=== PATIENT | female | born 1955 | race Caucasian/White ===

== ENCOUNTER → 2016-07-16 | Outpatient (CLI) | payer OTHER ==
[~2016-07-16] MED LIST: CALCIUM AND VIT D OR; CLAR5CHW OR; FLUO20SO2 OR; IBUP800T OR; MULTIVIT OR; NASONEX; TRAZ50TA OR
--- NOTE | 2016-07-16 10:43 | REP ---
Chest x-ray: Two views. History: Cough. Comparison study September 28, 2014. Findings: There is an infiltrate in the left base consistent with pneumonia. It is not well seen on lateral radiograph. The pleural angles are sharp. Heart size is normal. Pulmonary vasculature is not increased. Impression: Infiltrate in the left base consistent with pneumonia. Signed by Mickey Cabrera MD 07/16/2016 12:39 P
== END ==
LOC: M LRY 10:08
PROVIDERS: ATTEND Physician Assistant
DX: R91.8 Other nonspecific abnormal finding of lung field (principal)

== ENCOUNTER → 2017-03-20 | Outpatient (CLI) | payer OTHER ==
--- NOTE | 2017-03-20 17:20 | REP ---
CT MAXILLOFACIAL WITHOUT CONTRAST: 03/20/2017. CLINICAL HISTORY: Chronic rhinitis and sinusitis. COMPARISON: 03/22/2016, 01/28/2015. FINDINGS: Axial, soft tissue and bone windows with coronal reconstructions and bone window settings are reviewed. Nasal septum is deviated towards the right side anteriorly, unchanged. Nasal bones and the nasal spine and maxilla unremarkable. Ethmoid air cells are clear. The frontal sinuses are clear and the maxillary sinuses are clear. Sphenoid air cells are clear. The ostiomeatal complexes show no infundibular stenosis and the hiatus semilunaris is intact. No ramone bullosa of the middle turbinates. Bony orbits and sinus wong are intact. The visualized mandible and maxillary alveolar ridge were without acute finding. The skull base and visualized portions of calvarium unremarkable. Mastoids symmetric. IMPRESSION: 1. Negative CT sinuses with the previous minor mucosal thickening in the left maxillary antrum are resolved. No air-fluid levels, destructive lesions, fractures or opacification of the bilateral OMCs. Signed by Jv Bowen MD 03/20/2017 05:22 P
== END ==
LOC: M RAD 15:59
PROVIDERS: ATTEND Specialist
DX: J31.0 Chronic rhinitis (principal); J34.2 Deviated nasal septum; G50.1 Atypical facial pain

== ENCOUNTER 2018-06-10 07:37 | Emergency (ER) | payer OTHER, MEDICAID ==
[2018-06-10 08:46] LABS: VENOUS BASE EXCESS -0.8 (-2.0-2.0); VENOUS HCO3 23.6 MEQ/L (23.0-27.0); VENOUS O2 SATURATION 98.3 % (60.0-80.0); VENOUS PARTIAL PRESSURE CO2 38.4 mmHg (38.0-50.0); VENOUS PARTIAL PRESSURE O2 115.7 mmHg (30.0-50.0); VENOUS PH 7.407 UNITS (7.330-7.430); VENOUS STANDARD HCO3 23.8 MEQ/L; VENOUS TOTAL CO2 24.8 MEQ/L (24.0-28.0)
[2018-06-10 08:53] LABS: BASO % 0.6 % (0.0-1.0); EOS # 0.1 10^3/uL (0.0-0.50); EOS % 2.3 % (0.0-3.0); HEMATOCRIT 37.9 % (36.0-47.0); IMMATURE GRANULOCYTE % 0.2 % (0-3.0); LYMPH # 3.2 10^3/uL (1.5-4.5); LYMPH % 51.5 % (24.0-44.0); MEAN CORPUSCULAR HEMOGLOBIN 30.4 pg (27.0-33.0); MEAN CORPUSCULAR HGB CONC 34.3 g/dl (32.0-36.5); MEAN CORPUSCULAR VOLUME 88.8 fl (80.0-96.0); MONO # 0.5 10^3/uL (0.0-0.8); MONO % 7.7 % (0.0-5.0); NEUTROPHILS # 2.3 10^3/uL (1.8-7.7); NEUTROPHILS % 37.7 % (36.0-66.0); PLATELET COUNT, AUTOMATED 280 10^3/uL (150-450); RED BLOOD COUNT 4.27 10^6/uL (4.00-5.40); RED CELL DISTRIBUTION WIDTH 11.5 % (11.5-14.5); WHITE BLOOD COUNT 6.2 10^3/uL (4.0-10.0)
[2018-06-10 09:12] LABS: ALBUMIN 3.7 GM/DL (3.2-5.2); ALBUMIN/GLOBULIN RATIO 1.12 (1.00-1.93); ALKALINE PHOSPHATASE 81 U/L (45-117); ALT/SGPT 49 U/L (12-78); ANION GAP 7 MEQ/L (8-16); AST/SGOT 20 U/L (7-37); BILIRUBIN,DIRECT < 0.1 MG/DL (0.0-0.2); BILIRUBIN,TOTAL 0.4 MG/DL (0.2-1.0); BLOOD UREA NITROGEN 10 MG/DL (7-18); CALCIUM LEVEL 8.5 MG/DL (8.8-10.2); CARBON DIOXIDE LEVEL 26 MEQ/L (21-32); CHLORIDE LEVEL 107 MEQ/L (98-107); CK-MB VALUE MASS < 1.0 NG/ML (<3.6); CPK CREATINE PHOSPHOKINASE 35 U/L (26-192); CREATININE FOR GFR 0.64 MG/DL (0.55-1.30); GLOMERULAR FILTRATION RATE > 60.0 (>45); GLUCOSE, FASTING 95 MG/DL (70-100); MB/CK RELATIVE INDEX 2.86 (< OR =4); POTASSIUM SERUM 3.9 MEQ/L (3.5-5.1); SODIUM LEVEL 140 MEQ/L (136-145); TROPONIN I < 0.02 NG/ML (< 0.10)
== END 2018-06-10 10:40 | disposition left against medical advice (07) ==
LOC: M ED 07:37
DX: R07.9 Chest pain, unspecified (principal); R05 Cough; H40.9 Unspecified glaucoma; J34.89 Other specified disorders of nose and nasal sinuses; Z79.899 Other long term (current) drug therapy; F17.210 Nicotine dependence, cigarettes, uncomplicated
CPT/HCPCS: 71046

== ENCOUNTER 2018-06-14 09:32 | Emergency (ER) | payer OTHER ==
[2018-06-14 10:35] LABS: BASO % 0.6 % (0.0-1.0); EOS # 0.1 10^3/uL (0.0-0.50); EOS % 1.9 % (0.0-3.0); HEMATOCRIT 38.2 % (36.0-47.0); HEMOGLOBIN 13.1 g/dl (12.0-15.5); IMMATURE GRANULOCYTE % 0.2 % (0-3.0); LYMPH # 2.5 10^3/uL (1.5-4.5); LYMPH % 39.6 % (24.0-44.0); MEAN CORPUSCULAR HEMOGLOBIN 30.4 pg (27.0-33.0); MEAN CORPUSCULAR HGB CONC 34.3 g/dl (32.0-36.5); MEAN CORPUSCULAR VOLUME 88.6 fl (80.0-96.0); MONO # 0.6 10^3/uL (0.0-0.8); MONO % 9.4 % (0.0-5.0); NEUTROPHILS # 3.1 10^3/uL (1.8-7.7); NEUTROPHILS % 48.3 % (36.0-66.0); PLATELET COUNT, AUTOMATED 260 10^3/uL (150-450); RED BLOOD COUNT 4.31 10^6/uL (4.00-5.40); RED CELL DISTRIBUTION WIDTH 11.4 % (11.5-14.5); WHITE BLOOD COUNT 6.4 10^3/uL (4.0-10.0)
[2018-06-14 11:00] LABS: D-DIMER QUANT < 270 ng/ml (<500)
[2018-06-14 11:05] LABS: ALBUMIN 3.4 GM/DL (3.2-5.2); ALKALINE PHOSPHATASE 77 U/L (45-117); ALT/SGPT 70 U/L (12-78); ANION GAP 10 MEQ/L (8-16); AST/SGOT 35 U/L (7-37); BILIRUBIN,DIRECT < 0.1 MG/DL (0.0-0.2); BILIRUBIN,TOTAL 0.4 MG/DL (0.2-1.0); BLOOD UREA NITROGEN 14 MG/DL (7-18); CALCIUM LEVEL 7.7 MG/DL (8.8-10.2); CARBON DIOXIDE LEVEL 24 MEQ/L (21-32); CHLORIDE LEVEL 109 MEQ/L (98-107); CK-MB VALUE MASS < 1.0 NG/ML (<3.6); CPK CREATINE PHOSPHOKINASE 32 U/L (26-192); CREATININE FOR GFR 0.64 MG/DL (0.55-1.30); GLOMERULAR FILTRATION RATE > 60.0 (>45); GLUCOSE, FASTING 88 MG/DL (70-100); LIPASE 176 U/L (73-393); MB/CK RELATIVE INDEX 3.12 (< OR =4); NT-PRO BNP 29 PG/ML (<125); POTASSIUM SERUM 3.9 MEQ/L (3.5-5.1); SODIUM LEVEL 143 MEQ/L (136-145); TOTAL PROTEIN 6.5 GM/DL (6.4-8.2); TROPONIN I < 0.02 NG/ML (< 0.10)
[2018-06-14 15:00] LABS: CK-MB VALUE MASS < 1.0 NG/ML (<3.6); CPK CREATINE PHOSPHOKINASE 38 U/L (26-192); MB/CK RELATIVE INDEX 2.63 (< OR =4); TROPONIN I < 0.02 NG/ML (< 0.10)
== END 2018-06-14 16:07 | disposition home or self-care (01) ==
LOC: M ED 09:32
DX: R07.89 Other chest pain (principal)
CPT/HCPCS: 71046

== ENCOUNTER 2018-06-19 08:14 | Emergency (ER) | payer OTHER ==
[2018-06-19] MEDS ORDERED: ISOVUE-370 76% 100ML VIAL (Q9967) As Ordered (09:32)
== END 2018-06-19 11:29 | disposition home or self-care (01) ==
LOC: M ED 08:14
DX: J40 Bronchitis, not specified as acute or chronic (principal); J30.9 Allergic rhinitis, unspecified; Z79.899 Other long term (current) drug therapy; F17.210 Nicotine dependence, cigarettes, uncomplicated
CPT/HCPCS: Q9967

== ENCOUNTER → 2018-07-04 | Outpatient (REF) | payer OTHER, MEDICAID ==
[~2018-07-04] MED LIST changes: +BRIM2OPD; +CLAR500T; +MONT10TA2; +VENTAER; +XALA0.007
== END ==
LOC: M SFHCPLAZ 16:00
PROVIDERS: ATTEND Physician Assistant Medical
DX: J30.9 Allergic rhinitis, unspecified (principal)

== ENCOUNTER → 2018-11-04 | Outpatient (CLI) | payer OTHER | LOC: M LRY 10:13 | PROVIDERS: ATTEND Nurse Practitioner Family | DX: Z53.9 Procedure and treatment not carried out, unspecified reason (principal); R09.89 Other specified symptoms and signs involving the circulatory and respiratory systems ==

== ENCOUNTER → 2018-11-04 | Outpatient (CLI) | payer OTHER ==
--- NOTE | 2018-11-04 16:14 | REP ---
Chest two views HISTORY: Congestion Comparison: 06/14/2018 The lungs are clear. The heart is normal in size. The pulmonary vasculature is normal in appearance. The bony structure is intact. IMPRESSION: No acute disease. Electronically Signed by Bubba Andrade MD 11/04/2018 12:08 P
== END ==
LOC: M RAD 11:35
PROVIDERS: ATTEND Nurse Practitioner Family
DX: Z87.09 Personal history of other diseases of the respiratory system (principal)

== ENCOUNTER → 2018-11-04 | Outpatient (CLI) | payer OTHER | LOC: M LRY 10:18 | PROVIDERS: ATTEND Nurse Practitioner Family | DX: Z53.9 Procedure and treatment not carried out, unspecified reason (principal); R09.89 Other specified symptoms and signs involving the circulatory and respiratory systems ==

== ENCOUNTER → 2020-05-20 | Outpatient (CLI) | payer OTHER ==
[~2020-05-20] MED LIST changes: -CLAR500T; +CLAR500T97; -MONT10TA2; +MONT10TA4
--- NOTE | 2020-05-20 08:30 | REP ---
INDICATION: TOBACCO ABUSE MRI 1ST CT 2ND. COMPARISON: Chest x-ray 11/04/2018, CT 06/19/2018 TECHNIQUE: Low-dose screening lung CT protocol FINDINGS: Of the lung barlow are well inflated. Minor apical pleuroparenchymal scarring left greater than right but stable. There is some minor linear fibro atelectatic change anterior left lung base in the inferior lingular segment of the left upper lobe no pleural effusion, pleural based mass, calcified pleural plaque or acute infiltrate. No discrete nodule. Tracheal airway intact. Visualized bones unremarkable. IMPRESSION: Lung rads category 1, Negative. No evidence of malignancy. For patients at high risk, follow-up with low-dose CT in 1 year. <Electronically signed by Jv Bowen > 05/20/20 [id number]
== END ==
LOC: M RAD 07:44
PROVIDERS: ATTEND Nurse Practitioner Family
DX: Z12.2 Encounter for screening for malignant neoplasm of respiratory organs (principal); Z72.0 Tobacco use

== ENCOUNTER → 2020-05-20 | Outpatient (CLI) | payer OTHER | LOC: M RAD 07:42 | PROVIDERS: ATTEND Specialist | DX: R42 Dizziness and giddiness (principal); Z53.9 Procedure and treatment not carried out, unspecified reason ==

== ENCOUNTER → 2020-06-10 | Outpatient (CLI) | payer OTHER ==
[~2020-06-10] MED LIST changes: -MONT10TA4; +MONT5TAB2
[2020-06-10 10:49] LABS: BLOOD UREA NITROGEN 13 MG/DL (7-18); CREATININE FOR GFR 0.67 MG/DL (0.55-1.30); GLOMERULAR FILTRATION RATE > 60.0 (>45)
== END ==
LOC: M LAB 09:45
PROVIDERS: ATTEND Specialist
DX: J31.0 Chronic rhinitis (principal); G50.1 Atypical facial pain

== ENCOUNTER → 2020-09-03 | Outpatient (CLI) | payer OTHER ==
[~2020-09-03] MED LIST changes: +MONT10TA10; -MONT5TAB2
--- NOTE | 2020-09-03 11:22 | REPVR ---
PROCEDURE INFORMATION: Exam: MR Head Without and With Contrast Exam date and time: 09/03/2020 10:13 AM Age: 64 years old Clinical indication: Dizziness and other: Sinus pressure; Patient HX: Dizziness, h/a, sinus pressure; Additional info: Dizziness, giddiness TECHNIQUE: Imaging protocol: MR of the head without and with intravenous contrast. Contrast material: PROHANCE; Contrast volume: 10 ml; Contrast route: INTRAVENOUS (IV); COMPARISON: No relevant prior studies available. FINDINGS: Brain: There is no extra-axial collection or intra-axial mass. Mild diffuse volume loss is within the range of normal for patient age. There is increased T2/FLAIR white matter hyperintensity, nonspecific but typically small-vessel ischemia in this age group. There is no diffusion restriction. Cerebral ventricles: Normal. No ventriculomegaly. Bones/joints: Unremarkable. Paranasal sinuses: Normal as visualized. No acute sinusitis. Mastoid air cells: Normal as visualized. No mastoid effusion. Orbital cavity: Unremarkable. Soft tissues: Unremarkable. IMPRESSION: No acute findings. Electronically signed by: Radha Martinez On 09/03/2020 11:23:17 AM
== END ==
LOC: M PLARAD 07:57
PROVIDERS: ATTEND Specialist
DX: R42 Dizziness and giddiness (principal)

== ENCOUNTER 2023-01-06 22:30 | Emergency (ER) | payer MEDICARE, OTHER ==
[~2023-01-06 22:30] MED LIST changes: -MONT10TA10; +MONT10TA97
[2023-01-06 22:31] VITALS: BP 185/82; TEMP 97; O2SAT 96
[2023-01-06] MEDS ORDERED: MUPI30CR TOP (23:55)
[2023-01-06] MEDS ORDERED: NIX1LIQ3 TOP (23:55)
== END 2023-01-07 00:22 | disposition home or self-care (01) ==
LOC: M ED 22:30
DX: L30.9 Dermatitis, unspecified (principal); I10 Essential (primary) hypertension; M54.9 Dorsalgia, unspecified; F41.9 Anxiety disorder, unspecified; F17.200 Nicotine dependence, unspecified, uncomplicated; Z79.899 Other long term (current) drug therapy

== ENCOUNTER 2023-01-09 21:43 | Emergency (ER) | payer MEDICARE, OTHER ==
[~2023-01-09] VITALS: Ht 162.6 cm; Wt 86.4 kg
[~2023-01-09 21:43] MED LIST changes: +MUPI30CR TOP; +NIX1LIQ3 TOP
[2023-01-10 00:30] VITALS: BP 138/77; TEMP 98.1; O2SAT 98
== END 2023-01-10 00:44 | disposition home or self-care (01) ==
LOC: M ED 21:43
DX: L30.9 Dermatitis, unspecified (principal); R22.43 Localized swelling, mass and lump, lower limb, bilateral; J45.909 Unspecified asthma, uncomplicated; F17.200 Nicotine dependence, unspecified, uncomplicated; Z79.899 Other long term (current) drug therapy

== ENCOUNTER → 2023-08-30 | Outpatient (CLI) | payer MEDICARE, OTHER ==
[2023-08-30 10:13] LABS: BASO # 0.1 10^3/uL (0.0-0.2); BASO % 0.8 % (0.0-1.0); EOS # 0.2 10^3/uL (0.0-0.5); EOS % 3.1 % (0.0-3.0); HEMATOCRIT 39.5 % (36.0-47.0); HEMOGLOBIN 13.3 g/dl (12.0-15.5); LYMPH # 2.4 10^3/uL (1.5-5.0); LYMPH % 37.8 % (24.0-44.0); MEAN CORPUSCULAR HEMOGLOBIN 29.3 pg (27.0-33.0); MEAN CORPUSCULAR HGB CONC 33.7 g/dl (32.0-36.5); MONO # 0.5 10^3/uL (0.0-0.8); MONO % 7.2 % (2.0-8.0); NEUTROPHILS # 3.3 10^3/uL (1.5-8.5); NEUTROPHILS % 50.8 % (36.0-66.0); PLATELET COUNT, AUTOMATED 287 10^3/uL (150-450); RED BLOOD COUNT 4.54 10^6/uL (4.00-5.40); WHITE BLOOD COUNT 6.4 10^3/uL (4.0-10.0)
[2023-08-30 10:50] LABS: HEMOGLOBIN A1c 5.3 % (4.0-6.0)
[2023-08-30 11:49] LABS: ALBUMIN 3.8 G/DL (3.2-5.2); ALKALINE PHOSPHATASE 89 U/L (46-116); ALT/SGPT 23 U/L (7.0-40); AST/SGOT 14 U/L (<34); BILIRUBIN,TOTAL 0.4 MG/DL (0.3-1.2); BLOOD UREA NITROGEN 17 MG/DL (9-23); CALCIUM LEVEL 8.8 MG/DL (8.3-10.6); CARBON DIOXIDE LEVEL 26 MMOL/L (20-31); CHLORIDE LEVEL 109 MMOL/L (98-107); CHOLESTEROL LEVEL 176 MG/DL (<200); CHOLESTEROL RISK RATIO 2.92 (<5); CREATININE FOR GFR 0.49 MG/DL (0.55-1.30); GLOMERULAR FILTRATION RATE > 60.0 (>45); GLUCOSE, FASTING 95 MG/DL (74-106); HDL CHOLESTEROL 60.1 MG/DL (>40); LDL CHOLESTEROL 101.9 MG/DL (<100); MAGNESIUM LEVEL 1.8 MG/DL (1.8-2.4); NON-HDL-C 115.9 MG/DL; POTASSIUM SERUM 4.2 MMOL/L (3.5-5.1); SODIUM LEVEL 141 MMOL/L (136-145); TOTAL PROTEIN 6.8 G/DL (5.7-8.2); TRIGLYCERIDES LEVEL 70 MG/DL (<150)
[2023-08-30 11:52] LABS: VITAMIN B12 LEVEL 587 PG/ML (211-911)
[2023-08-30 11:53] LABS: FOLATE > 24.00 NG/ML (>5.4); THYROID STIMULATING HORMONE 1.323 uIU/ML (0.55-4.78)
[2023-08-30 11:54] LABS: FREE T4 0.88 NG/DL (0.89-1.76)
[2023-08-31 23:07] LABS: ANA (HEP2) Positive (.)
== END ==
LOC: M LAB 09:18
PROVIDERS: ATTEND Registered Nurse
DX: R20.2 Paresthesia of skin (principal); Z13.220 Encounter for screening for lipoid disorders; Z79.899 Other long term (current) drug therapy

== ENCOUNTER 2024-07-11 09:55 | Emergency (ER) | payer MEDICARE ==
[~2024-07-11] VITALS: Ht 165.1 cm; Wt 87.3 kg
[2024-07-11 09:58] VITALS: BP 163/85; TEMP 96.7; O2SAT 97
[2024-07-11] MEDS ORDERED: ERYT5OIN25 OP (11:31)
[2024-07-11] MEDS ORDERED: AMOX875T PO (11:31)
== END 2024-07-11 11:40 | disposition home or self-care (01) ==
LOC: M ED 09:55
DX: H10.32 Unspecified acute conjunctivitis, left eye (principal); Z79.52 Long term (current) use of systemic steroids; Z79.2 Long term (current) use of antibiotics; Z79.899 Other long term (current) drug therapy